=== PATIENT | female | born 1980 | race Caucasian/White ===

== ENCOUNTER 2021-05-04 08:00 | Inpatient (IN) ==
[2021-05-04] MEDS ORDERED: Famotidine 20 MG/2 ML VIAL IVP PRN (08:34)
[2021-05-04] MEDS ORDERED: Naloxone 0.4 MG/ML INJ IVP PRN (08:34)
[2021-05-04] MEDS ORDERED: Metoclopramide 10 MG/2 ML VIAL IVP PRN (08:34)
[2021-05-04] MEDS ORDERED: Penicillin G Potassium 5,000,000 UNIT in 0.9 % Sodium Chloride Mini Bag 100 ML IVPB ONE ×2 (09:50→10:30)
[2021-05-04] MEDS: Ringers Solution, Lactated 1,000 ML IVC SCH ×3 (10:07→18:39)
[2021-05-04] MEDS ORDERED: EPHEDrine 50 MG/ML VIAL IVP PRN (10:09)
[2021-05-04] MEDS ORDERED: Epidural Premix (fent/bupiv) 110 ML EP SCH (10:15)
[2021-05-04 10:41] LABS: Basophils % 0.4 %; Eosinophils # 0.1 K/mcL (0.0-0.6); Eosinophils % 1.5 %; Hematocrit 34.9 % (35.3-44.9); Immature Granulocytes % 0.3 % (0-4); Lymphocytes # 1.8 K/mcL (0.6-4.6); Lymphocytes % 24.5 %; Mean Corpuscular HGB Conc 31.5 g/dL (31.6-35.5); Mean Corpuscular Hemoglobin 27.4 pg (28.0-33.3); Mean Corpuscular Volume 86.8 fL (83.0-100.0); Mean Platelet Volume 11.7 fL (9.4-12.4); Monocytes # 0.7 K/mcL (0.0-1.3); Monocytes % 9.2 %; Neutrophils # 4.7 K/mcL (1.6-8.9); Platelet Count 294 K/mcL (140-400); Red Blood Count 4.02 M/mcL (3.82-4.97); Red Cell Distribution Width 14.4 % (11.5-14.5); Segmented Neutrophils % 64.1 %; White Blood Count 7.3 K/mcL (4.3-11.1)
[2021-05-04 10:50] LABS: Amphetamine Screen,Urine Negative ng/mL (Cutoff=1000); Barbiturate Screen,Urine Negative ng/mL (Cutoff=200); Benzodiazepines Screen,Urine Negative ng/mL (Cutoff=200); Cannabinoid Screen,Urine Negative ng/mL (Cutoff = 50); Cocaine Screen,Urine Negative ng/mL (Cutoff= 300); Opiate Screen,Urine Negative ng/mL (Cutoff=300); Phencyclidine Screen,Urine Negative ng/mL (Cutoff=25)
[2021-05-04] MEDS ORDERED: miSOPROStoL 25 MCG TABLET VG PRN (11:16)
[2021-05-04] MEDS ORDERED: Oxytocin 20 units/ LR 1000 mL 20 UNIT/1,000 ML BAG IVC SCH ×2 (12:00→23:59)
[2021-05-04] MEDS: Penicillin G Potassium 2,500,000 UNIT in 0.9 % Sodium Chloride 100 ML IVPB SCH ×2 (14:39→18:40)
[2021-05-04] MEDS ORDERED: Ondansetron 4 MG/2 ML VIAL ONE (15:10)
[2021-05-04] MEDS ORDERED: Sennosides 8.6 MG TABLET PO PRN (23:59)
[2021-05-04] MEDS ORDERED: Lanolin 7 G OINT...G. TP PRN (23:59)
[2021-05-04] MEDS ORDERED: Benzocaine/Menthol 56 GM AEROSOL SPRAY TP PRN (23:59)
[2021-05-05] MEDS: Ibuprofen 600 MG TABLET PO PRN ×4 (02:00→22:27)
[2021-05-05 02:27] LABS: Basophils % 0.2 %; Eosinophils % 0.1 %; Hematocrit 32.7 % (35.3-44.9); Hemoglobin 10.6 g/dL (11.5-15.4); Immature Granulocytes % 0.4 % (0-4); Lymphocytes # 1.2 K/mcL (0.6-4.6); Lymphocytes % 7.9 %; Mean Corpuscular HGB Conc 32.4 g/dL (31.6-35.5); Mean Corpuscular Volume 86.3 fL (83.0-100.0); Mean Platelet Volume 11.4 fL (9.4-12.4); Monocytes # 1.1 K/mcL (0.0-1.3); Monocytes % 7.1 %; Neutrophils # 12.7 K/mcL (1.6-8.9); Platelet Count 262 K/mcL (140-400); Red Blood Count 3.79 M/mcL (3.82-4.97); Red Cell Distribution Width 14.4 % (11.5-14.5); Segmented Neutrophils % 84.3 %
[2021-05-05] MEDS: Acetaminophen 325 MG TABLET PO PRN ×2 (04:43→15:07)
[2021-05-05] MEDS: Prenatal Vit/FA 1 EACH TABLET PO SCH (08:33)
[2021-05-05] MEDS: *HR* OxyCODONE Immed Rel 5 MG TABLET PO PRN ×3 (08:34→22:35)
[2021-05-06 07:59] VITALS: BP 111/74
[2021-05-06] MEDS: Prenatal Vit/FA 1 EACH TABLET PO SCH (09:24)
[2021-05-06] MEDS: Ibuprofen 600 MG TABLET PO PRN (09:34)
== END 2021-05-06 11:38 | disposition home or self-care (01) | DRG 560 ==
LOC: 1NENULAB 08:15 → 1NENUOBS 23:59
PROVIDERS: ADMIT Obstetrics & Gynecology; ATTEND Obstetrics & Gynecology